=== PATIENT | male | born 1980 | race Caucasian/White ===

== ENCOUNTER 2025-05-03 10:49 | Emergency (ER) | payer OTHER, SELFPAY ==
[2025-05-03 10:52] VITALS: BP 147/94
[2025-05-03 11:15] LABS: Hematocrit 46.0 % (39.0-52.0); Hemoglobin 16.5 g/dL (13.0-18.0); Mean Corp Hgb Conc. 35.9 g/dL (33.0-37.0); Mean Corpuscular Volume 82.6 fL (80.0-94.0); Nucleated Red Blood Cells % 0 % (-); Platelet Count 183 10^3/uL (130-400); Red Cell Dist. Width 12.2 % (11.5-14.5)
[2025-05-03 11:36] LABS: ALT (SGPT) 63 U/L (0-50); AST (SGOT) 36 U/L (17-59); Albumin 4.9 g/dl (3.5-5.0); Alkaline Phosphatase 81 U/L (38-126); Blood Urea Nitrogen 12 mg/dl (9-20); Calcium 9.5 mg/dl (8.4-10.2); Carbon Dioxide 31 mmol/L (22-30); Chloride 103 mmol/L (98-107); Glucose 106 mg/dl (70-99); Potassium 4.7 mmol/L (3.5-5.1); Sodium 139 mmol/L (135-145); Total Protein 7.8 g/dl (6.3-8.2); eGFR > 60.00
[2025-05-03 11:41] LABS: Troponin I < 0.012 ng/ml
[2025-05-03 13:05] VITALS: BP 120/78
[2025-05-03 13:29] VITALS: BMI 30.8
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
[2025-05-03 14:00] VITALS: BP 128/87
[2025-05-03 14:35] LABS: D-Dimer 0.29 ug/mlFEU (0.00-0.50)
[2025-05-03 15:00] VITALS: BP 124/92
[2025-05-03 15:15] LABS: Troponin I < 0.012 ng/ml
== END 2025-05-03 15:40 | disposition home or self-care (01) ==
LOC: EMR 10:49
PROVIDERS: Physician Assistant Medical; EMERGENCY PHYSICIAN Emergency Medicine; FAMILY PHYSICIAN Family Medicine
DX: R09.1 Pleurisy (principal)
CPT/HCPCS: 99284; 71046; 80053; 84484; 85025; 85379; 93005